=== PATIENT | female | born 1985 | race Caucasian/White ===

== ENCOUNTER → 2018-04-29 | Outpatient (CLI) | payer BC ==
[2018-04-29 11:54] LABS: ADD MAN DIFF? NO
[2018-04-29 12:01] LABS: BASOPHILS % 0.3 % (0.0-2.0); EOSINOPHILS # 0.2 10^3/ul (0.0-0.5); EOSINOPHILS % 1.6 % (0.0-7.0); HEMATOCRIT 40.9 % (37.0-47.0); HEMOGLOBIN 13.6 g/dl (12.0-16.0); LYMPHOCYTES # 1.5 10^3/ul (0.8-2.9); LYMPHOCYTES % 15.9 % (15.0-51.0); MEAN CORPUSCULAR HEMOGLOBIN 30.2 pg (29.0-33.0); MEAN CORPUSCULAR HGB CONC 33.3 g/dl (32.0-37.0); MEAN CORPUSCULAR VOLUME 90.9 fl (82.0-101.0); MONOCYTE # 0.5 10^3/ul (0.3-0.9); MONOCYTES % 4.8 % (0.0-11.0); NEUTROPHIL # 7.2 10^3/ul (1.6-7.5); PLATELET COUNT 264 10^3/UL (140-415); RED CELL DISTRIBUTION WIDTH 12.8 % (11.5-14.5)
[2018-04-29 12:01] LABS: WHITE BLOOD COUNT 9.3 10^3/ul (4.8-10.8)
[2018-04-29 12:09] LABS: ADD UMIC YES; UR ASCORBIC ACID NEGATIVE (NEGATIVE); UR BILIRUBIN (Dip) NEGATIVE (NEGATIVE); UR BLOOD (Dip) 2+ mg/dL (NEGATIVE); UR CLARITY CLEAR (CLEAR); UR COLOR YELLOW (YELLOW); UR GLUCOSE (Dip) NEGATIVE (NEGATIVE); UR KETONES (Dip) TRACE mg/dL (NEGATIVE); UR LEUKOCYTE ESTERASE (Dip) NEGATIVE Leu/ul (NEGATIVE); UR MUCUS FEW /HPF (NONE SEEN); UR NITRITE (Dip) NEGATIVE (NEGATIVE); UR RBC 1 /HPF (0-5); UR SPECIFIC GRAVITY (Dip) 1.017 (1.003-1.030); UR SQUAMOUS EPITHELIAL CELL FEW /HPF (FEW); UR TOTAL PROTEIN (Dip) NEGATIVE (NEGATIVE); UR UROBILINOGEN (Dip) NEGATIVE (NEGATIVE); UR WBC 1 /HPF (0-5)
[2018-04-29 12:58] LABS: HEPATITIS B SURFACE ANTIGEN NEGATIVE (NEGATIVE)
[2018-04-29 13:15] LABS: HEPATITIS C VIRAL ANTIBODY NEGATIVE (NEGATIVE)
[2018-04-29 13:16] LABS: HIV 1&2 ANTIBODY NEGATIVE (NEGATIVE)
[2018-04-29 23:14] LABS: RAPID PLASMA REAGIN NONREACTIVE (NR)
[2018-04-30 12:01] LABS: RUBELLA ANTIBODY - IGM <20.00 AU/mL
== END | disposition home or self-care (01) ==
LOC: LAB 11:17
DX: Z36.9 Encounter for antenatal screening, unspecified (principal)
CPT/HCPCS: 81001; 84443; 85025; 86592; 86703; 86762; 86803; 86850; 86900; 86901; 87340

== ENCOUNTER 2018-06-29 12:57 | Inpatient (IN) | payer BC ==
[2018-06-29] MEDS: INDOMETHACIN 50 MG PO (14:17)
[2018-06-29 15:45] LABS: WHITE BLOOD COUNT 5.5 10^3/ul (4.8-10.8)
[2018-06-29 15:45] LABS: ABNORMAL IP MESSAGE 1; HEMOGLOBIN 13.1 g/dl (12.0-16.0); MEAN CORPUSCULAR HGB CONC 33.6 g/dl (32.0-37.0); MEAN CORPUSCULAR VOLUME 92.4 fl (82.0-101.0); MEAN PLATELET VOLUME 9.5 fl (7.4-10.4); PLATELET COUNT 280 10^3/UL (140-415); RED BLOOD COUNT 4.22 10^6/ul (4.20-5.40); RED CELL DISTRIBUTION WIDTH 12.4 % (11.5-14.5)
[2018-06-29 15:47] LABS: ADD MAN DIFF? YES; POSITIVE DIFF @See below
[2018-06-29] MEDS: TERBUTALINE 1 MG/ML INJ SC (15:58)
[2018-06-29] MEDS: LACTATED RINGER'S 1,000 ML IV ×2 (15:59→19:30)
[2018-06-29 16:19] LABS: BAND NEUTROPHILS % (M) 1 % (0-4); GIANT THROMBO% (M) 1 % (0-0); LYMPHOCYTES #M 0.7 10^3/ul (0.8-2.9); LYMPHOCYTES % (M) 14 % (15-51); MONOCYTES % (M) 1 % (0-11); PLATELET ESTIMATE NORMAL; SEG NEUT #M 4.6 10^3/ul (1.6-7.5); SEGMENTED NEUTROPHILS (M) % 84 % (39-77); SMUDGE%M 5 % (0-0)
[2018-06-29] MEDS: LACTATED RINGER'S 500 ML IV (19:00)
[2018-06-29] MEDS: INDOMETHACIN 25 MG PO ×2 (19:01→23:54)
[2018-06-29] MEDS ORDERED: LACTATED RINGER'S 1,000 ML IV (23:30)
[2018-06-30] MEDS: INDOMETHACIN 25 MG PO ×4 (06:09→22:57)
[2018-06-30] MEDS: DOCUSATE SODIUM 100 MG CAP PO (22:57)
[2018-07-01] MEDS: INDOMETHACIN 25 MG PO ×3 (06:05→18:02)
[2018-07-01] MEDS: DOCUSATE SODIUM 100 MG CAP PO ×3 (09:06→18:55)
[2018-07-01] MEDS: AZITHROMYCIN 500MG/NS (PMX) 250 ML IVPB (14:05)
[2018-07-01] MEDS: AMPICILLIN 2 GM/NS (PMX) 100 ML IVPB ×2 (15:39→20:33)
[2018-07-02] MEDS: INDOMETHACIN 25 MG PO ×4 (00:37→18:12)
[2018-07-02] MEDS: DOCUSATE SODIUM 100 MG CAP PO ×4 (00:37→18:00)
[2018-07-02] MEDS: AMPICILLIN 2 GM/NS (PMX) 100 ML IVPB ×4 (01:07→18:12)
[2018-07-02] MEDS: AZITHROMYCIN 250 MG in SOD CHLORIDE 0.9% 250 ML IVPB (14:15)
[2018-07-02] MEDS ORDERED: AZITHROMYCIN 250 MG in SOD CHLORIDE 0.9% 250 ML IVPB (15:00)
[2018-07-03] MEDS: INDOMETHACIN 25 MG PO ×4 (00:10→18:10)
[2018-07-03] MEDS: AMPICILLIN 2 GM/NS (PMX) 100 ML IVPB ×5 (00:11→23:36)
[2018-07-03] MEDS ORDERED: RANITIDINE 150 MG TAB PO (06:00)
[2018-07-03] MEDS: DOCUSATE SODIUM 100 MG CAP PO ×5 (06:00→23:36)
[2018-07-03] MEDS: RANITIDINE 150 MG TAB PO (06:12)
[2018-07-03] MEDS: AZITHROMYCIN 250 MG in SOD CHLORIDE 0.9% 250 ML IVPB (14:17)
[2018-07-04] MEDS: DOCUSATE SODIUM 100 MG CAP PO ×3 (06:00→18:04)
[2018-07-04] MEDS: AMPICILLIN 2 GM/NS (PMX) 100 ML IVPB ×3 (06:16→18:04)
[2018-07-04] MEDS: RANITIDINE 150 MG TAB PO (09:31)
[2018-07-04] MEDS: ACETAMINOPHEN 500 MG TAB PO ×2 (09:47→20:50)
[2018-07-04] MEDS: AZITHROMYCIN 250 MG in SOD CHLORIDE 0.9% 250 ML IVPB (14:05)
[2018-07-05] MEDS: DOCUSATE SODIUM 100 MG CAP PO ×5 (06:03→22:41)
[2018-07-05] MEDS: AMPICILLIN 2 GM/NS (PMX) 100 ML IVPB ×4 (06:03→18:15)
[2018-07-05] MEDS: RANITIDINE 150 MG TAB PO (10:14)
[2018-07-05] MEDS: AZITHROMYCIN 250 MG in SOD CHLORIDE 0.9% 250 ML IVPB (14:11)
[2018-07-05] MEDS: ACETAMINOPHEN 500 MG TAB PO (19:22)
[2018-07-06] MEDS: AMPICILLIN 2 GM/NS (PMX) 100 ML IVPB ×5 (00:19→23:55)
[2018-07-06] MEDS: DOCUSATE SODIUM 100 MG CAP PO ×4 (06:11→23:55)
[2018-07-06] MEDS: SOD CHLORIDE 0.9% 1,000 ML IV ×2 (06:12→14:27)
[2018-07-06] MEDS: RANITIDINE 150 MG TAB PO (11:42)
[2018-07-06] MEDS: AZITHROMYCIN 250 MG in SOD CHLORIDE 0.9% 250 ML IVPB (14:14)
[2018-07-07] MEDS: AMPICILLIN 2 GM/NS (PMX) 100 ML IVPB ×4 (06:07→22:57)
[2018-07-07] MEDS: DOCUSATE SODIUM 100 MG CAP PO ×4 (06:07→23:19)
[2018-07-07] MEDS: RANITIDINE 150 MG TAB PO (09:40)
[2018-07-07] MEDS: AZITHROMYCIN 250 MG in SOD CHLORIDE 0.9% 250 ML IVPB (14:19)
[2018-07-08] MEDS: DOCUSATE SODIUM 100 MG CAP PO ×4 (05:20→22:43)
[2018-07-08] MEDS: AMPICILLIN 2 GM/NS (PMX) 100 ML IVPB ×3 (05:20→17:55)
[2018-07-08] MEDS: RANITIDINE 150 MG TAB PO (11:47)
[2018-07-08] MEDS: AZITHROMYCIN 250 MG in SOD CHLORIDE 0.9% 250 ML IVPB (14:10)
[2018-07-08] MEDS: PANTOPRAZOLE (EC) 40 MG TAB PO (22:30)
[2018-07-09] MEDS: AMPICILLIN 2 GM/NS (PMX) 100 ML IVPB ×2 (06:00)
[2018-07-09] MEDS: DOCUSATE SODIUM 100 MG CAP PO ×4 (06:08→22:49)
[2018-07-09] MEDS: PANTOPRAZOLE (EC) 40 MG TAB PO (06:09)
[2018-07-09] MEDS: FLUCONAZOLE 150 MG TAB PO (20:42)
[2018-07-10] MEDS: PANTOPRAZOLE (EC) 40 MG TAB PO (05:05)
[2018-07-10] MEDS: DOCUSATE SODIUM 100 MG CAP PO ×4 (05:05→22:28)
[2018-07-11] MEDS: DOCUSATE SODIUM 100 MG CAP PO ×3 (05:57→17:34)
[2018-07-11] MEDS: PANTOPRAZOLE (EC) 40 MG TAB PO (06:00)
[2018-07-12] MEDS: PANTOPRAZOLE (EC) 40 MG TAB PO (06:02)
[2018-07-12] MEDS: DOCUSATE SODIUM 100 MG CAP PO ×5 (06:02→23:39)
[2018-07-13] MEDS: DOCUSATE SODIUM 100 MG CAP PO ×3 (04:48→18:10)
[2018-07-13] MEDS: PANTOPRAZOLE (EC) 40 MG TAB PO (04:48)
[2018-07-14] MEDS: PANTOPRAZOLE (EC) 40 MG TAB PO (06:26)
[2018-07-14] MEDS: DOCUSATE SODIUM 100 MG CAP PO ×5 (06:26→22:38)
[2018-07-15] MEDS: PANTOPRAZOLE (EC) 40 MG TAB PO (05:15)
[2018-07-15] MEDS: DOCUSATE SODIUM 100 MG CAP PO ×4 (05:15→22:58)
[2018-07-16] MEDS: PANTOPRAZOLE (EC) 40 MG TAB PO (05:13)
[2018-07-16] MEDS: DOCUSATE SODIUM 100 MG CAP PO ×4 (05:15→23:08)
[2018-07-17] MEDS: PANTOPRAZOLE (EC) 40 MG TAB PO (06:35)
[2018-07-17] MEDS: DOCUSATE SODIUM 100 MG CAP PO ×4 (06:36→22:35)
[2018-07-17] MEDS: LACTATED RINGER'S 1,000 ML IV (15:07)
[2018-07-17] MEDS: BETAMET NA PHOS/AC(6 MG/ML) 5ML INJ IM (15:09)
[2018-07-17] MEDS: MAGNESIUM SULFATE 4 GM/100 ML 100 ML IVPB (15:16)
[2018-07-17 15:46] LABS: ADD MAN DIFF? NO
[2018-07-17] MEDS: MAGNESIUM SULFATE 20 GM/500 ML 500 ML IV (15:47)
[2018-07-17 15:50] LABS: BASOPHILS % 0.3 % (0.0-2.0); EOSINOPHILS # 0.1 10^3/ul (0.0-0.5); HEMATOCRIT 35.2 % (37.0-47.0); HEMOGLOBIN 12.4 g/dl (12.0-16.0); LYMPHOCYTES # 1.7 10^3/ul (0.8-2.9); LYMPHOCYTES % 16.7 % (15.0-51.0); MEAN CORPUSCULAR HEMOGLOBIN 31.8 pg (29.0-33.0); MEAN CORPUSCULAR HGB CONC 35.2 g/dl (32.0-37.0); MEAN CORPUSCULAR VOLUME 90.3 fl (82.0-101.0); MEAN PLATELET VOLUME 9.5 fl (7.4-10.4); MONOCYTE # 0.5 10^3/ul (0.3-0.9); MONOCYTES % 5.3 % (0.0-11.0); NEUTROPHIL # 7.7 10^3/ul (1.6-7.5); PLATELET COUNT 286 10^3/UL (140-415); RED CELL DISTRIBUTION WIDTH 12.4 % (11.5-14.5)
[2018-07-17 15:50] LABS: WHITE BLOOD COUNT 10.1 10^3/ul (4.8-10.8)
[2018-07-17 16:04] LABS: ALANINE AMINOTRANSFERASE 25 IU/L (13-69); ALBUMIN 3.3 g/dl (3.3-4.9); ALBUMIN/GLOBULIN RATIO 0.97; ALKALINE PHOSPHATASE 99 IU/L (42-121); ANION GAP 13 (8-16); ASPARTATE AMINO TRANSFERASE 18 IU/L (15-46); BILIRUBIN,INDIRECT 0.2 mg/dl (0-1.1); BILIRUBIN,TOTAL 0.2 mg/dl (0.2-1.3); BLOOD UREA NITROGEN 3 mg/dl (7-20); CALCIUM 9.1 mg/dl (8.4-10.2); CARBON DIOXIDE 23 mmol/L (21-31); CHLORIDE 104 mmol/L (97-110); CREATININE 0.37 mg/dl (0.44-1.00); GLUCOSE 138 mg/dl (70-220); POTASSIUM 3.6 mmol/L (3.5-5.1); SODIUM 136 mmol/L (135-144); TOTAL PROTEIN 6.7 g/dl (6.1-8.1)
[2018-07-17] MEDS: AZITHROMYCIN 500MG/NS (PMX) 250 ML IVPB (16:29)
[2018-07-17] MEDS: AMPICILLIN 2 GM/NS (PMX) 100 ML IVPB (18:02)
[2018-07-17 20:27] LABS: MAGNESIUM 4.5 mg/dl (1.7-2.5)
[2018-07-18] MEDS: AMPICILLIN 2 GM/NS (PMX) 100 ML IVPB ×4 (00:06→17:53)
[2018-07-18] MEDS: MAGNESIUM SULFATE 20 GM/500 ML 500 ML IV ×2 (02:01→20:13)
[2018-07-18] MEDS: LACTATED RINGER'S 1,000 ML IV ×2 (05:44→17:14)
[2018-07-18] MEDS: PANTOPRAZOLE (EC) 40 MG TAB PO (05:44)
[2018-07-18] MEDS: DOCUSATE SODIUM 100 MG CAP PO ×3 (05:44→17:53)
[2018-07-18 10:20] LABS: MAGNESIUM 3.9 mg/dl (1.7-2.5)
[2018-07-18] MEDS: POLYETHYLENE GLYCOL 17 GM PACKET PO (12:09)
[2018-07-18] MEDS: BETAMET NA PHOS/AC(6 MG/ML) 5ML INJ IM (15:43)
[2018-07-18] MEDS: AZITHROMYCIN 250 MG in SOD CHLORIDE 0.9% 250 ML IVPB (15:48)
[2018-07-18] MEDS: ACETAMINOPHEN 500 MG TAB PO (19:51)
[2018-07-18 22:26] LABS: MAGNESIUM 3.7 mg/dl (1.7-2.5)
[2018-07-19] MEDS: DOCUSATE SODIUM 100 MG CAP PO ×5 (00:27→17:48)
[2018-07-19] MEDS: AMPICILLIN 2 GM/NS (PMX) 100 ML IVPB ×4 (00:27→17:42)
[2018-07-19] MEDS: LACTATED RINGER'S 1,000 ML IV ×2 (05:46→21:46)
[2018-07-19] MEDS: PANTOPRAZOLE (EC) 40 MG TAB PO (05:46)
[2018-07-19 10:10] LABS: MAGNESIUM 3.5 mg/dl (1.7-2.5)
[2018-07-19] MEDS: POLYETHYLENE GLYCOL 17 GM PACKET PO (10:32)
[2018-07-19] MEDS: NIFEdipine 10 MG CAP PO ×2 (15:00→21:47)
[2018-07-19] MEDS: AZITHROMYCIN 250 MG in SOD CHLORIDE 0.9% 250 ML IVPB (16:34)
[2018-07-20] MEDS: AMPICILLIN 2 GM/NS (PMX) 100 ML IVPB ×5 (00:29→23:25)
[2018-07-20] MEDS: DOCUSATE SODIUM 100 MG CAP PO ×3 (06:00→18:09)
[2018-07-20] MEDS: PANTOPRAZOLE (EC) 40 MG TAB PO (06:28)
[2018-07-20] MEDS: NIFEdipine 10 MG CAP PO ×3 (06:29→21:30)
[2018-07-20] MEDS: POLYETHYLENE GLYCOL 17 GM PACKET PO ×2 (09:00→18:45)
[2018-07-20] MEDS: AZITHROMYCIN 250 MG in SOD CHLORIDE 0.9% 250 ML IVPB (16:22)
[2018-07-20] MEDS: LACTATED RINGER'S 1,000 ML IV ×2 (22:49)
[2018-07-21] MEDS: LACTATED RINGER'S 1,000 ML IV ×2 (04:45→14:45)
[2018-07-21] MEDS: DOCUSATE SODIUM 100 MG CAP PO ×5 (05:22→19:45)
[2018-07-21] MEDS: AMPICILLIN 2 GM/NS (PMX) 100 ML IVPB ×4 (05:24→22:40)
[2018-07-21] MEDS: PANTOPRAZOLE (EC) 40 MG TAB PO (05:24)
[2018-07-21] MEDS: NIFEdipine 10 MG CAP PO ×3 (05:24→21:45)
[2018-07-21] MEDS: POLYETHYLENE GLYCOL 17 GM PACKET PO ×2 (09:00→17:18)
[2018-07-21] MEDS: AZITHROMYCIN 250 MG in SOD CHLORIDE 0.9% 250 ML IVPB (16:07)
[2018-07-22] MEDS: PANTOPRAZOLE (EC) 40 MG TAB PO (05:10)
[2018-07-22] MEDS: NIFEdipine 10 MG CAP PO ×3 (05:11→21:41)
[2018-07-22] MEDS: DOCUSATE SODIUM 100 MG CAP PO ×4 (05:11→21:44)
[2018-07-22] MEDS: AMPICILLIN 2 GM/NS (PMX) 100 ML IVPB ×4 (05:12→22:08)
[2018-07-22] MEDS: LACTATED RINGER'S 1,000 ML IV ×2 (10:45→11:28)
[2018-07-22] MEDS: AZITHROMYCIN 250 MG in SOD CHLORIDE 0.9% 250 ML IVPB (16:11)
[2018-07-22] MEDS: POLYETHYLENE GLYCOL 17 GM PACKET PO (16:12)
[2018-07-23] MEDS: AMPICILLIN 2 GM/NS (PMX) 100 ML IVPB ×4 (05:09→22:40)
[2018-07-23] MEDS: PANTOPRAZOLE (EC) 40 MG TAB PO (05:21)
[2018-07-23] MEDS: DOCUSATE SODIUM 100 MG CAP PO ×3 (05:21→18:00)
[2018-07-23] MEDS: NIFEdipine 10 MG CAP PO ×3 (05:23→21:50)
[2018-07-23] MEDS: LACTATED RINGER'S 1,000 ML IV ×3 (06:45→20:20)
[2018-07-23] MEDS: AZITHROMYCIN 250 MG in SOD CHLORIDE 0.9% 250 ML IVPB (16:54)
[2018-07-23 17:12] LABS: ADD MAN DIFF? NO
[2018-07-23 17:13] LABS: WHITE BLOOD COUNT 13.3 10^3/ul (4.8-10.8)
[2018-07-23 17:13] LABS: BASOPHILS % 0.2 % (0.0-2.0); EOSINOPHILS # 0.3 10^3/ul (0.0-0.5); EOSINOPHILS % 2.5 % (0.0-7.0); HEMOGLOBIN 13.7 g/dl (12.0-16.0); LYMPHOCYTES # 1.8 10^3/ul (0.8-2.9); LYMPHOCYTES % 13.7 % (15.0-51.0); MEAN CORPUSCULAR HEMOGLOBIN 31.3 pg (29.0-33.0); MEAN CORPUSCULAR HGB CONC 34.3 g/dl (32.0-37.0); MEAN CORPUSCULAR VOLUME 91.3 fl (82.0-101.0); MEAN PLATELET VOLUME 9.1 fl (7.4-10.4); MONOCYTE # 0.9 10^3/ul (0.3-0.9); MONOCYTES % 7.1 % (0.0-11.0); NEUTROPHIL # 10.1 10^3/ul (1.6-7.5); PLATELET COUNT 282 10^3/UL (140-415); RED BLOOD COUNT 4.38 10^6/ul (4.20-5.40); RED CELL DISTRIBUTION WIDTH 12.4 % (11.5-14.5)
[2018-07-23 17:30] LABS: ALANINE AMINOTRANSFERASE 25 IU/L (13-69); ALBUMIN 3.9 g/dl (3.3-4.9); ALBUMIN/GLOBULIN RATIO 1.05; ALKALINE PHOSPHATASE 111 IU/L (42-121); ANION GAP 13 (8-16); ASPARTATE AMINO TRANSFERASE 15 IU/L (15-46); BILIRUBIN,INDIRECT 0.4 mg/dl (0-1.1); BILIRUBIN,TOTAL 0.4 mg/dl (0.2-1.3); BLOOD UREA NITROGEN 6 mg/dl (7-20); CALCIUM 9.7 mg/dl (8.4-10.2); CARBON DIOXIDE 24 mmol/L (21-31); CHLORIDE 101 mmol/L (97-110); CREATININE 0.42 mg/dl (0.44-1.00); GLUCOSE 100 mg/dl (70-220); POTASSIUM 3.8 mmol/L (3.5-5.1); SODIUM 134 mmol/L (135-144); TOTAL PROTEIN 7.6 g/dl (6.1-8.1)
[2018-07-23 17:49] LABS: INR 0.94; PARTIAL THROMBOPLASTIN TIME 29.9 Sec (25.0-35.0); PROTIME 12.7 Sec (11.9-14.9)
[2018-07-23] MEDS: POLYETHYLENE GLYCOL 17 GM PACKET PO (18:02)
[2018-07-24] MEDS: LACTATED RINGER'S 1,000 ML IV ×2 (02:45→23:21)
[2018-07-24] MEDS: DOCUSATE SODIUM 100 MG CAP PO ×4 (05:47→18:00)
[2018-07-24] MEDS: PANTOPRAZOLE (EC) 40 MG TAB PO (05:47)
[2018-07-24] MEDS: NIFEdipine 10 MG CAP PO ×4 (05:49→23:22)
[2018-07-24] MEDS: AMPICILLIN 2 GM/NS (PMX) 100 ML IVPB (05:52)
[2018-07-24] MEDS: FLUCONAZOLE 100 MG TAB PO (14:10)
[2018-07-24] MEDS: POLYETHYLENE GLYCOL 17 GM PACKET PO (17:26)
[2018-07-25] MEDS: LACTATED RINGER'S 1,000 ML IV ×4 (01:05→20:18)
[2018-07-25] MEDS: ACETAMINOPHEN 500 MG TAB PO ×2 (01:25→13:50)
[2018-07-25] MEDS: ZOLPIDEM 5 MG TAB PO (01:31)
[2018-07-25] MEDS: NIFEdipine 10 MG CAP PO ×3 (05:54→17:45)
[2018-07-25] MEDS: PANTOPRAZOLE (EC) 40 MG TAB PO (05:54)
[2018-07-25] MEDS: DOCUSATE SODIUM 100 MG CAP PO ×4 (05:55→17:46)
[2018-07-25] MEDS: POLYETHYLENE GLYCOL 17 GM PACKET PO (17:46)
[2018-07-25] MEDS: MAGNESIUM SULFATE 3 GM in DEXTROSE 5% 100 ML IVPB (21:34)
[2018-07-25] MEDS: MAGNESIUM SULFATE 20 GM/500 ML 500 ML IV (22:10)
[2018-07-26] MEDS: PANTOPRAZOLE (EC) 40 MG TAB PO (05:29)
[2018-07-26] MEDS: DOCUSATE SODIUM 100 MG CAP PO ×5 (05:29→20:45)
[2018-07-26] MEDS: LACTATED RINGER'S 1,000 ML IV ×2 (05:58→18:22)
[2018-07-26] MEDS: MAGNESIUM SULFATE 20 GM/500 ML 500 ML IV ×2 (05:59→16:17)
[2018-07-26 11:26] LABS: MAGNESIUM 4.8 mg/dl (1.7-2.5)
[2018-07-26] MEDS: ACETAMINOPHEN 500 MG TAB PO (12:16)
[2018-07-26] MEDS: POLYETHYLENE GLYCOL 17 GM PACKET PO (18:21)
[2018-07-27] MEDS: MAGNESIUM SULFATE 20 GM/500 ML 500 ML IV ×2 (03:23→12:52)
[2018-07-27] MEDS: DOCUSATE SODIUM 100 MG CAP PO ×4 (05:13→22:21)
[2018-07-27] MEDS: LACTATED RINGER'S 1,000 ML IV ×2 (05:21→17:58)
[2018-07-27] MEDS: PANTOPRAZOLE (EC) 40 MG TAB PO (05:43)
[2018-07-27] MEDS: ACETAMINOPHEN 500 MG TAB PO ×3 (11:21→22:58)
[2018-07-27 12:12] LABS: MAGNESIUM 4.8 mg/dl (1.7-2.5)
[2018-07-27] MEDS: DIPHENHYDRAMINE 25 MG CAP PO (22:15)
[2018-07-27 23:01] LABS: MAGNESIUM 3.7 mg/dl (1.7-2.5)
[2018-07-28] MEDS: ZOLPIDEM 5 MG TAB PO (02:16)
[2018-07-28] MEDS: PANTOPRAZOLE (EC) 40 MG TAB PO ×2 (06:00→08:02)
[2018-07-28] MEDS: DOCUSATE SODIUM 100 MG CAP PO ×3 (06:00→14:32)
[2018-07-28] MEDS: LACTATED RINGER'S 1,000 ML IV ×3 (07:57→22:03)
[2018-07-28] MEDS: MAGNESIUM SULFATE 20 GM/500 ML 500 ML IV ×2 (08:10→11:46)
[2018-07-28] MEDS: POLYETHYLENE GLYCOL 17 GM PACKET PO (16:20)
[2018-07-28 20:38] LABS: MAGNESIUM 3.5 mg/dl (1.7-2.5)
[2018-07-28] MEDS: INDOMETHACIN 50 MG SUPP PR (20:41)
[2018-07-28] MEDS ORDERED: ONDANSETRON 4 MG INJ IV (21:00)
[2018-07-28] MEDS ORDERED: NALOXONE (0.4 MG/ML) INJ IV (21:00)
[2018-07-28] MEDS ORDERED: FENTAnyl 2MCG/ML-ROPIV 0.2% 100 ML BAG EPI (21:00)
[2018-07-28] MEDS ORDERED: KETOROLAC 30 MG INJ IV (21:00)
[2018-07-28] MEDS ORDERED: METHYLERGONOVINE 0.2 MG INJ IM (23:30)
[2018-07-28] MEDS ORDERED: CARBOPROST 250 MCG INJ IM (23:30)
[2018-07-28] MEDS ORDERED: OXYTOCIN 30 UNITS/LR 500 ML IV (23:30)
[2018-07-28] MEDS ORDERED: MISOPROSTOL 200 MCG TAB PR (23:30)
[2018-07-28] MEDS ORDERED: IBUPROFEN 600 MG TAB PO (23:30)
[2018-07-28] MEDS ORDERED: LIDOCAINE 1% (MPF) 30 ML INJ INJ (23:30)
[2018-07-29] MEDS: OXYTOCIN 30 UNITS/LR 500 ML IV ×4 (00:14→17:03)
[2018-07-29] MEDS: HYDROCODONE/APAP (5/325) TAB PO ×2 (00:49→15:57)
[2018-07-29] MEDS ORDERED: LACTATED RINGER'S 1,000 ML IV* (00:51)
[2018-07-29] MEDS ORDERED: CARBOPROST 250 MCG INJ IM (01:00)
[2018-07-29] MEDS ORDERED: OXYTOCIN 30 UNITS/LR 500 ML IV (01:00)
[2018-07-29] MEDS ORDERED: METHYLERGONOVINE 0.2 MG INJ IM (01:00)
[2018-07-29] MEDS ORDERED: ZOLPIDEM 5 MG TAB PO (01:00)
[2018-07-29] MEDS ORDERED: MISOPROSTOL 200 MCG TAB PR (01:00)
[2018-07-29] MEDS ORDERED: INDOMETHACIN 50 MG SUPP PR (02:30)
[2018-07-29] MEDS: RANITIDINE 150 MG TAB PO ×2 (09:00→19:41)
[2018-07-29] MEDS: ACETAMINOPHEN 500 MG TAB PO (19:38)
[2018-07-29 22:25] LABS: RAPID PLASMA REAGIN NONREACTIVE (NR)
[2018-07-30] MEDS: DIPHTH/TET/ACEL PERTUSS (ADULT) 0.5 ML VIAL IM* (09:00)
[2018-07-30 09:30] LABS: ADD MAN DIFF? NO
[2018-07-30 09:32] LABS: WHITE BLOOD COUNT 8.9 10^3/ul (4.8-10.8)
[2018-07-30 09:32] LABS: BASOPHILS % 0.2 % (0.0-2.0); EOSINOPHILS # 0.2 10^3/ul (0.0-0.5); HEMATOCRIT 29.1 % (37.0-47.0); HEMOGLOBIN 9.8 g/dl (12.0-16.0); LYMPHOCYTES # 1.9 10^3/ul (0.8-2.9); LYMPHOCYTES % 21.1 % (15.0-51.0); MEAN CORPUSCULAR HEMOGLOBIN 31.2 pg (29.0-33.0); MEAN CORPUSCULAR HGB CONC 33.7 g/dl (32.0-37.0); MEAN CORPUSCULAR VOLUME 92.7 fl (82.0-101.0); MEAN PLATELET VOLUME 9.2 fl (7.4-10.4); MONOCYTE # 0.4 10^3/ul (0.3-0.9); MONOCYTES % 4.4 % (0.0-11.0); NEUTROPHIL # 6.4 10^3/ul (1.6-7.5); NEUTROPHILS % 71.6 % (39.0-77.0); PLATELET COUNT 236 10^3/UL (140-415); RED BLOOD COUNT 3.14 10^6/ul (4.20-5.40); RED CELL DISTRIBUTION WIDTH 12.4 % (11.5-14.5)
[2018-07-30] MEDS: RANITIDINE 150 MG TAB PO ×2 (10:22→21:00)
[2018-07-30] MEDS: LANOLIN 7 GM TUBE TOP (11:08)
[2018-07-30] MEDS: HYDROCODONE/APAP (5/325) TAB PO (18:56)
== END 2018-07-30 21:45 | disposition home or self-care (01) | DRG 775 ==
LOC: L-D 12:57
PROVIDERS: Obstetrics & Gynecology
PROC: 10E0XZZ Delivery of Products of Conception, External Approach (ICD-10-PCS; principal; 2018-07-29)
DX: O34.32 Maternal care for cervical incompetence, second trimester (principal); O60.12X0 Preterm labor second trimester with preterm delivery second trimester, not applicable or unspecified; B37.49 Other urogenital candidiasis; Z3A.20 20 weeks gestation of pregnancy; Z16.20 Resistance to unspecified antibiotic; R12 Heartburn; K59.00 Constipation, unspecified; Z3A.24 24 weeks gestation of pregnancy; Z37.0 Single live birth
CPT/HCPCS: 62319; 76815; 76817; 80053; 83735; 85025; 85610; 85730; 86592; 86850; 86900; 86901; 87081; 97110; 97162; 99464

== ENCOUNTER 2018-08-05 10:01 | Emergency (ER) | payer BC | END 2018-08-05 11:28 | disposition home or self-care (01) | LOC: FTE 10:01 | DX: H61.23 Impacted cerumen, bilateral (principal) | CPT/HCPCS: 69210; 99283-25 ==

== ENCOUNTER 2018-08-15 20:48 | Emergency (ER) | payer BC ==
[2018-08-15] MEDS: ACETAMINOPHEN 325 MG TAB PO (21:25)
[2018-08-15 21:47] LABS: ADD UMIC YES; UR ASCORBIC ACID NEGATIVE (NEGATIVE); UR BILIRUBIN (Dip) NEGATIVE (NEGATIVE); UR BLOOD (Dip) 3+ mg/dL (NEGATIVE); UR CLARITY SLIGHTLY CLOUDY (CLEAR); UR COLOR STRAW (YELLOW); UR GLUCOSE (Dip) NEGATIVE (NEGATIVE); UR KETONES (Dip) NEGATIVE (NEGATIVE); UR LEUKOCYTE ESTERASE (Dip) TRACE Leu/ul (NEGATIVE); UR NITRITE (Dip) NEGATIVE (NEGATIVE); UR NONSQUAMOUS EPITHELIAL CELL 1 /HPF (NONE SEEN); UR RBC 21 /HPF (0-5); UR SPECIFIC GRAVITY (Dip) 1.005 (1.003-1.030); UR SQUAMOUS EPITHELIAL CELL MODERATE /HPF (FEW); UR TOTAL PROTEIN (Dip) NEGATIVE (NEGATIVE); UR UROBILINOGEN (Dip) NEGATIVE (NEGATIVE); UR WBC 8 /HPF (0-5)
== END 2018-08-15 22:29 | disposition home or self-care (01) ==
LOC: FTE 20:48
DX: O99.89 Other specified diseases and conditions complicating pregnancy, childbirth and the puerperium (principal); M54.5 Low back pain; R10.2 Pelvic and perineal pain
CPT/HCPCS: 76856; 81001; 99284-25